=== PATIENT | male | born 2000 | race Caucasian/White ===

== ENCOUNTER 2021-01-19 16:12 | Emergency (ER) | payer OTHER, SELFPAY ==
[2021-01-19 16:25] VITALS: BP 140/75; PULSE 97; RESP 16; TEMP 37.3; O2SAT 99
--- NOTE | 2021-01-19 17:21 | PC.NURSE ---
DOG BITE FORM COMPLETED AND FAXED TO [facility]. PHONE NUMBER CALLED AND MESSAGE LEFT DUE TO SEVERITY OF INJURY.
--- NOTE | 2021-01-19 18:44 | PC.NURSE ---
REPORT PROVIDED TO BENSON BISWAS
[2021-01-19] MEDS: NEOMYCIN/POLYMYXIN/BACITRACIN OINTMENT PACKET 3 PACKET (19:15)
--- NOTE | 2021-01-19 19:17 | ED.ANIMALBIT ---
HPI - Animal Bite General Chief Complaint: Animal Bite Stated Complaint: dog bite under jaw Time Seen by Provider: 01/19/21 16:35 Source: patient and family Mode of arrival: ambulatory Limitations: no limitations History of Present Illness HPI narrative: Patient comes in after being bitten on the neck twice by a dog. He has 6 small laceration on his left lateral chest. complaint: animal bite Onset (ago): minute(s) (30 minute sprior to presentation) Animal: dog Description of animal: household pet Mechanism: bite Location: neck (left lateral neck) Context: playing with animal Associated symptoms: numbness (he has some mild numbness to left lateral neck) Related Data Patient tetanus UTD: Yes Allergies Allergy/AdvReac Type Severity Reaction Status Date / Time lisinopril Allergy Intermediate Verified 04/28/16 09:16 Review of Systems Constitutional: Constitutional: Reports no additional constitutional complaints Eyes: Eyes: Reports no additional eye complaints ENT: Reports system reviewed and no additional complaints, except as documented Cardiovascular: Cardiovascular: Reports no additional cardiovascular complaints Respiratory: Respiratory: Reports no additional respiratory complaints Gastrointestinal: Gastrointestinal: Reports no additional gastrointestinal complaints Genitourinary: Genitourinary: Reports no additional male genitourinary complaints Musculoskeletal: Musculoskeletal: Reports no additional musculoskeletal complaints Integumentary/Breasts: Skin/Breast: Reports system reviewed and no additional complaints, except as docu Neurologic: Reports system reviewed and no additional complaints, except as documented Psychiatric: Psychiatric: Reports no additional psychiatric complaints Endocrine: Endocrine: Reports no additional endocrine complaints Hematologic/Lymphatic: Hematologic/Lymphatic: Reports no additional hematologic/lymphatic complaints Allergic/Immunologic: Allergic/Immunologic: Reports no additional allergic/immunologic complaints [facility] Past Medical History Medical History No significant past medical history Surgical History Surgical History No significant past surgical history Family History Family History Mother No significant family history Social History Social History Smoking status: Never smoker Alcohol intake: never Living arrangements: with family Occupation/Education: occupation Additional occupation/education comments: now working in concrete factory Gender identity (if verbalized by the patient): Male Sexual Orientation (if Verbalized by the Patient): Straight or Heterosexual Spiritual care concerns: No Agree to blood products: No Exam Const: General: no acute distress and alert Nutritional Appearance: thin Orientation/consciousness: patient oriented x3 HENMT: Head: normal to inspection Face and sinus: normal facial exam Other: He has what appears to be 6 lacerations to left lateral neck. Eyes: Conjunctivae: conjunctivae normal Neck: Neck: normal visual inspection Chest: Chest palpation & inspection: normal inspection of the chest Resp: Effort & Inspection: normal respiratory effort Cardio: Rate: regular rate Rhythm: regular rhythm GI: GI Palp: Yes Soft to palpation (nontender) Back/Spine/Pelvis: Back: no CVA tenderness Skin: General skin exam: normal color Neuro: General: patient oriented x3 Extrem: General: normal to inspection Psych: Appearance: grossly normal Mental Status: mental status grossly normal Thought content: Yes Normal thought content present Course Course Emergency Course: He had six wounds to his left lateral neck. Wounds were irrigated with wound wash, and then with normal saline. Wounds edges were t
[2021-01-19] MEDS: PENICILLIN G BENZATHINE 1,200,000 UNITS/2 ML SYRINGE 1200000 UNITS IM (19:26)
[2021-01-19 19:29] VITALS: BP 130/85; PULSE 85; RESP 18; TEMP 36.6; O2SAT 100
== END 2021-01-19 19:43 | disposition home or self-care (01) ==
PROVIDERS: Emergency Provider Emergency Medicine
DX: S11.95XA Open bite of unspecified part of neck, initial encounter (principal); W54.0XXA Bitten by dog, initial encounter
CPT/HCPCS: 12002; 96372; 99283; J0561

== ENCOUNTER 2024-01-16 11:35 | Outpatient (CLI) | payer OTHER, SELFPAY ==
--- NOTE | ~2024-01-16 | XR_ITS ---
Left Hand Technique: PA, oblique, and lateral views were obtained. Clinical History: Pain Findings: No acute fracture or dislocation is seen. Osseous alignment is anatomic. Joint spaces are p reserved. Soft tissues are unremarkable. Impression: Unremarkable left hand. Reviewed, dictated and finalized at location M. Impression: Unremarkable left hand.
--- NOTE | ~2024-01-16 | XR_ITS ---
Left Shoulder Technique: AP and scapular Y views were obtained. Clinical History: Pain Findings: No fracture or dislocation is seen. Osseous alignment is anatomic. The glenohumeral and acr omioclavicular joint spaces are preserved. Soft tissues are unremarkable. Impression: Unremarkable left shoulder radiographs. Reviewed, dictated and finalized at [facility]. Impression: Unremarkable left shoulder radiographs.
--- NOTE | ~2024-01-16 | XR_ITS ---
Right Hand Technique: PA, oblique, and lateral views were obtained. Clinical History: Pain Findings: No acute fracture or dislocation is seen. Osseous alignment is anatomic. Joint spaces are p reserved. Soft tissues are unremarkable. Impression: Unremarkable right hand. Reviewed, dictated and finalized at location M. Impression: Unremarkable right hand.
--- NOTE | ~2024-01-16 | XR_ITS ---
Left Knee Technique: AP, lateral, and sunrise views were obtained. Clinical History: Joint pain Findings: No fracture or dislocation is seen. Osseous alignment is anatomic. Joint spaces are preserv ed without degenerative or erosive change. Soft tissues are unremarkable. No joint effusion is seen. Impression: Unremarkable left knee radiographs. Reviewed, dictated and finalized at location . Impression: Unremarkable left knee radiographs.
--- NOTE | ~2024-01-16 | XR_ITS ---
Right Shoulder Technique: AP and scapular Y views were obtained. Clinical History: Pain Findings: No fracture or dislocation is seen. Osseous alignment is anatomic. The glenohumeral and acr omioclavicular joint spaces are preserved. Soft tissues are unremarkable. Impression: Unremarkable right shoulder radiographs. Reviewed, dictated and finalized at [facility]. Impression: Unremarkable right shoulder radiographs.
== END 2024-01-16 11:36 | disposition home or self-care (01) ==
LOC: CHSIMG 11:37
PROVIDERS: PCP Family Medicine; Visit Provider Physician Assistant
DX: M79.642 Pain in left hand (principal); M79.641 Pain in right hand; M25.562 Pain in left knee; M25.561 Pain in right knee; M25.512 Pain in left shoulder
CPT/HCPCS: 73030; 73130; 73564

== ENCOUNTER 2025-02-27 16:40 | Emergency (ER) | payer BC, SELFPAY ==
[2025-02-27] VITALS (14 sets, daily range): BP systolic 115–162; BP diastolic 63–91; PULSE 49–72; RESP 15–22; TEMP 36.6–36.9; O2SAT 98–100
--- NOTE | ~2025-02-27 | XR_ITS ---
XR chest 2V Ordering provider: Rafa Bower MD History: 24 years Male with . cp . Comparison: None. FINDINGS: MEDIASTINUM: The cardiac silhouette is not enlarged. LUNGS: No infiltrates, effusions or pneumothorax. OTHER: No free air under the diaphragm. IMPRESSION: No acute cardiopulmonary pathology. Reviewed, dictated and finalized at location A.
--- NOTE | 2025-02-27 16:41 | ECG_ITS ---
Test Date: 2025-02-27 16:48:24 Measurements Intervals [place] Rate: 79 P: 35 SC: 124 QRS: 20 QRSD: 102 T: 8 QT: 336 QTc: 385 Interpretive Statements SINUS RHYTHM WITH SINUS ARRHYTHMIA VOLTAGE CRITERIA FOR LVH MINIMAL Q WAVES- HIGH LATERAL LEADS NONSPECIFIC T-WAVE ABNORMALITY= INFERIOR LEADS BASELINE ARTIFACT- I, II, III, AVR, AVL, AVF, V4-V5 BORDERLINE ECG No previous ECG available for comparison Electronically Signed On 02-27-2025 19:00:00 CDT by Flako To D.O.
--- OUTSIDE RECORDS SUMMARY | 2025-02-27 16:42 | XMS_ITS | Continuity of Care Document ---
Author Name [facility] Organization [facility] Care Team Providers Care Director School Of Nursing Name Role Phone [facility] Unavailable Unavailable Problems Combined list of problems from Department of Defense and Veterans Affairs facilities. It does not include entries that were removed or entered in error. Problem Status Onset Date Problem Type Date of Resolution Comments Source Other visual disturbances Inactive 06/24/2020 Condition DoD Disturbances of salivary secretion Inactive 02/09/2020 Condition DoD Medications Combined list of outpatient medications from Department of Defense and Veterans Affairs facilities.Medications provided include 1) outpatient medications from the last 15 months, and 2) patient-reported medications. Medication Details Route Status Patient Instructions Prescription Expires Prescription Number Last Dispense Date Ordering Provider Order Date Order Qty Source doxycycline hyclate 100 mg oral tablet 0 total refill(s ) Ordered 2019 No Facilit y Access Allergies, Adverse Reactions, Alerts Combined list of allergies from Department of Defense and Veterans Affairs facilities. It does not include entries that were removed or entered in error. Substance Category Reaction Severity Reaction type Status Date Reported Comments Source No Known Allergies Drug allergy (disorder) active 09/03/2018 Yuliet Curtis [place] Immunizations Combined list of available immunizations from the Department of Defense and Veterans Affairs facilities. Immunization Series Date Given Administered By Site Reaction Lot Number CVX Code Drug Bryologist Status Comments Source anthrax vaccine 2019 [id number] Emergent Biosolutions complet ed anthrax vaccine 11/28/19 Given Ambulat ory Pharmac y typhoid Vi capsular polysaccharid e vac 2019 [id number] sanofi pasteur complet ed typhoid Vi capsular polysacch aride vac 11/28/19 Given Ambulat ory Pharmac y poliovirus vaccine, inactivated 2019 [id number] 10 sanofi pasteur complet ed polioviru s vaccine, inactivat ed 11/28/19 Given Ambulat ory Pharmac y poliovirus vaccine, inactivated 2019 zzLef t Arm [id number] 10 sanofi pasteur complet ed polioviru s vaccine, inactivat ed 11/28/19 Given Ambulat ory Pharmac y anthrax vaccine 2019 zzLef t Arm [id number] 24 Emergent [employer] complet ed anthrax vaccine 11/28/19 Given Ambulat ory Pharmac y typhoid Vi capsular polysaccharid e vac 2019 zzLef t Arm [id number] 101 sanofi pasteur complet ed typhoid Vi capsular polysacch aride vac 11/28/19 Given Ambulat ory Pharmac y poliovirus vaccine, inactivated 2 2019 AUGUSTUS NARANJO [id number] 10 Sanofi Pasteur (PMC) complet ed polioviru s vaccine, inactivat ed DoD anthrax vaccine 1 2019 AUGUSTUS NARANJO [id number] 24 Emergent [employer] [place] ([facility]) complet ed anthrax vaccine DoD typhoid Vi capsular polysaccharid e vaccine 1 2019 AUGUSTUS NARANJO [id number] 101 Sanofi Pasteur (PMC) complet ed typhoid Vi capsular polysacch aride vaccine DoD hepatitis A adult vaccine 2018 [id number] 52 GlaxoSmithKli ne complet ed hepatitis A adult vaccine 08/28/19 Given Ambulat ory Pharmac y influenza, injectable, quadrivalent- pf 2018 [id number] 150 Seqirus complet ed influenza , injectabl e, quadrival ent-pf 08/28/19 Given Ambulat ory Pharmac y influenza, injectable, quadrivalent- pf 2018 [id number] 150 Seqirus complet ed influenza , injectabl e, quadrival ent-pf 08/28/19 Given Ambulat ory Pharmac y hepatitis A adult vaccine 2018 [id number] 52 GlaxoSmithKli ne complet ed hepatitis A adult vaccine 08/28/19 Given Ambulat ory Pharmac y hepatitis A vaccine, adult dosage 3 2018 [id number] 52 SmithKline (SKB) complet ed hepatitis A vaccine, adult dosage DoD Influenza, injectable, quadrivalent, preservative free 1 2018 [id number] 150 Seqirus (SEQ) complet ed Influenza , injectabl e, quadrival ent, preservat lucia free DoD [place] Encephalitis IM 2018 [id number] 4E 134 Unknown complet ed [place] Encephali tis IM 07/01/19 Given Ambulat ory Pharmac y [place] Encephalitis IM 2018 [id number] 4E 134 Unknown complet ed [place] Encephali tis IM 07/01/19 Given Ambulat ory Pharmac y [place] Encephalitis vaccine for intramuscular administratio n 2 2018 [id number] 4E 134 Unknown (UNK) complet ed [place] Encephali tis vaccine for intramusc ular administr ation DoD [place] Encephalitis IM 2018 [id number] 4E 134 Unknown complet ed [place] Encephali tis IM 05/25/19 Given Ambulat ory Pharmac y [place] Encephalitis IM 2018 [id number] 4E 134 Unknown complet ed [place] Encephali tis IM 05/25/19 Given Ambulat ory Pharmac y [place] Encephalitis vaccine for intramuscular administratio n 1 2018 [id number] 4E 134 Unknown (UNK) complet ed [place] Encephali tis vaccine for intramusc ular administr ation DoD hepatitis A adult vaccine 2017 UNK 52 Unknown complet ed hepatitis A adult vaccine 10/19/18 Given Ambulat ory Pharmac y hepatitis A adult vaccine 2017 UNK 52 Unknown complet ed hepatitis A adult vaccine 10/19/18 Given Ambulat ory Pharmac y hepatitis A vaccine, adult dosage 2 2017 UNK 52 Unknown (UNK) comple t ed hepatitis A vaccine, adult dosage DoD influenza, injectable, quadrivalent- pf 2017 [id number] 150 GlaxoSmithKli ne complet ed influenza , injectabl e, quadrival ent-pf 10/01/18 Given Ambulat ory Pharmac y influenza, injectable, quadrivalent- pf 2017 [id number] 150 GlaxoSmithKli ne complet ed influenza , injectabl e, quadrival ent-pf 10/01/18 Given Ambulat ory Pharmac y Influenza, injectable, quadrivalent, preservative free 1 2017 [id number] 150 M-DAQine (SKB) complet ed Influenza , injectabl e, quadrival ent, preservat lucia free DoD measles, mumps and rubella virus vaccine 1 2017 UNK 03 Unknown (UNK) Not Given measles, mumps and rubella virus vaccine DoD varicella virus vaccine 1 2017 UNK 21 Unknown (UNK) Not Given varicella virus vaccine DoD hepatitis B vaccine, adult dosage 1 2017 UNK 43 Unknown (UNK) Not Given hepatitis B vaccine, adult dosage DoD adenovirus vaccine, live 08/17/ 2018 [id number] 143 Teva Pharmaceutica ls complet ed adenoviru s vaccine, live 06/21/18 Given Ambulat ory Pharmac y Hep A, ped/adol, 2 dose 2017 [id number] 83 GlaxoSmithKli ne complet ed Hep A, ped/adol, 2 dose 06/21/18 Given Ambulat ory Pharmac y Hep A, ped/adol, 2 dose 2017 [id number] 83 GlaxoSmithKli ne complet ed Hep A, ped/adol, 2 dose 06/21/18 Given Ambulat ory Pharmac y adenovirus vaccine, live 2017 [id number] 5 143 Teva Pharmaceutica ls complet ed adenoviru s vaccine, live 06/21/18 Given Ambulat ory Pharmac y hepatitis A vaccine, pediatric/ado lescent dosage, 2 dose schedule 1 2017 [id number] 83 [employer] [facility] (SKB[facility] complet ed hepatitis A vaccine, pediatric /adolesce nt dosage, 2 dose schedule DoD Adenovirus, type 4 and type 7, live, oral [id number] [facility] (R) complet ed Adenoviru s, type 4 and type 7, live, oral DoD tetanus, diphtheria, acellular pertu is 2017 [id number] 115 sanofi pasteur complet ed tetanus, diphtheri a, acellular pertussis 06/19/18 Given Ambulat ory Pharmac y meningococcal A,C,Y,W-135 (MCV4P) 2017 UNK 114 Merck & Company Inc complet ed meningoco ccal A,C,Y,W-1 35 (MCV4P) 06/19/18 Given Ambulat ory Pharmac y poliovirus vaccine, inactivated 2017 [id number] 10 sanofi pasteur complet ed polioviru s vaccine, inactivat ed 06/19/18 Given Ambulat ory Pharmac y poliovirus vaccine, inactivated 2017 [id number] 10 sanofi pasteur complet ed polioviru s vaccine, inactivat ed 06/19/18 Given Ambulat ory Pharmac y tetanus, diphtheria, acellular pertu is 2017 [id number] 115 sanofi pasteur complet ed tetanus, diphtheri a, acellular pertussis 06/19/18 Given Ambulat ory Pharmac y meningococcal A,C,Y,W-135 (MCV4P) 2017 UNK 114 Merck & Company Inc complet ed meningoco ccal A,C,Y,W-1 35 (MCV4P) 06/19/18 Given Ambulat ory Pharmac y poliovirus vaccine, inactivated 1 2017 [id number] 10 Sanofi Pasteur (PMC) complet ed polioviru s vaccine, inactivat ed DoD meningococcal polysaccharid e (groups A, C, Y and W-135) diphtheria toxoid conjugate vaccine (MCV4P) 1 2017 UNK 114 Merck (MSD) complet ed meningoco ccal polysacch aride (groups A, C, Y and W-135) diphtheri a toxoid conjugate vaccine (MCV4P) DoD tetanus toxoid, reduced diphtheria toxoid, and acellular pertu is vaccine, adsorbed 1 2017 [id number] 115 Sanofi Pasteur (PMC) complet ed tetanus toxoid, reduced diphtheri a toxoid, and acellular pertussis vaccine, adsorbed DoD Encounters Combined list of: 1) Encounters from Department of Veterans Affairs facilities going backup to the last 18 months, not all VA inpatient encounters are included; 2) Encounters from the Department of Defense facilities going backup to 280 months. Location Location Details Encounter Type Encounter Number Reason For Visit Attending Provider ADM Date DC Date Status Disposition Source [place]iet [place]([facility]) OUTPATIENT [id number] Notes Entered by: HEIDI DIAZ 20 Jun 2018 1046 ------- ------- ------- ------- -- hearing test HEIDI ALVARADO 06/20 Released w/o Limitations [place] ) [place] [place] OUTPATIENT [id number] ANA KO 06/24 Released w/o Limitations [place] [place] [facility] OUTPAT[place] [id number] Notes Entered by: JENNIFER OLVERA 18 Jul 2018 0735 ------- ------- ------- ------- -- IMM TASHA GONSALEZ Shayla 07/18 Released w/o Limitations [place] ) [place] [facility]) OUTPATIENT [id number] NEURO headach DUKE Reza 09/03 Sick at Home/Quarter s [place] [facility]) OUTPATIENT [id number] Notes Entered by: MANISHA ARGUELLO 01 Oct 2018 0956 ------- ------- ------- ------- -- IMM-FLU THEO CORTES 10/01 Released w/o Limitations [place] [facility]) [facility]) OUTPATIENT [id number] Notes Entered by: ANTHONY CUEVAS 28 Nov 2019 1028 ------- ------- ------- ------- -- STEPHANIE WOLFF 11/28 Released w/o Limitations [facility] OUTPATIENT [id number] Theater Provider 02/08 Released w/o Limitations Theater Facilit y Theater Facility OUTPATIENT [id number] Theater Provider 06/24 Released w/o Limitations Theater Facilit y [facility]) OUTPATIENT [id number] Notes Entered by: YOUNG ADORNO 04 Oct 2020 0843 ------- ------- ------- ------- -- JOSIAH GASTELUM 10/04 Released w/o Limitations [facility]) [facility]) OUTPATIENT [id number] Notes Entered by: RENNY GARCIA 04 Oct 2020 0849 ------- ------- ------- ------- -- BRIANDA ESTEVEZ 10/04 Released w/o Limitations [facility] [place] ) Procedures Combined list of: 1) Procedures from Department of Veterans Affairs facilities going back up to thelast 18 months, not all VA non-surgical procedures are included; 2) All procedures from the Department of Defense facilities. Procedure Procedure Type Code Date Perfomer Comments Sourc e No data available for this section Ambulato ry Pharmacy Immunization Administration One Vaccine Immunization Administration One Vaccine 06585 018 THEO KEE DoD Vaccines Adenovirus Type 7 Live, For Oral Use Vaccines Adenovirus Type 7 Live, For Oral Use 69081 018 TASHA GONSALEZ A single vaccine dose administered orally DoD Immunization Administration Each Additional Vaccine Immunization Administration Each Additional Vaccine 61477 TASHA GONSALEZ DoD Immunization Administration One Vaccine Immunization Administration One Vaccine 80348 018 TASHA GONSALEZ DoD Tdap Vaccine Tdap Vaccine 47629 TASHA GONSALEZ Visit for an IM injection of 0.5mL of Boostrix (Tetanus and Diphtheria Toxoids and Acellular Pertussis). Was given in the Right Deltoid. Patient was observed for 15 min with no adverse reactions. DoD Vaccines Viral Polio, Inactivated (Salk) Vaccines Viral Polio, Inactivated (Salk) 22677 018 TASHA GONSALEZ Visit for an IM injection of 0.5mL of IPOL (Poliovirus Vaccine Inactivated). Was given in the Right Deltoid. Patient was observed for 15 min with no adverse reactions. DoD Hep A Vac Ped/Adol Dosage (Intramusc Use) 2 Dose Schedule Hep A Vac Ped/Adol Dosage (Intramusc Use) 2 Dose Schedule 86902 018 TASHA GONSALEZ Visit for an IM injection of 0.5mL of Hepatitis A (Havrix) pediatric dose. Was given in the Right Deltoid. Patient was observed for 15 min with no adverse reactions. DoD Immunization Admin Intranasal / Oral Each Additional Vaccine Immunization Admin Intranasal / Oral Each Additional Vaccine [address] [facility] Vaccines Adenovirus Type 4 Live, For Oral Use Vaccines Adenovirus Type 4 Live, For Oral Use 49778 018 TASHA GONSALEZ A single vaccine dose administered orally [facility] Screening Test Of Visual Acuity, Quantitative, Bilateral Screening Test Of Visual Acuity, Quantitative, Bilateral [address] [facility] Threshold Audiogram (Pure Tone) Automated Threshold Audiogram (Pure Tone) Automated [id number] [address] [facility] Vaccines Viral Polio, Inactivated (Salk) Vaccines Viral Polio, Inactivated (Salk) 50181 STEPHANIE AUGUSTE IPV; Series #: 2; 0.5 mL; IM; Left Arm; Mfg: Sanofi Pasteur; Lot: [id number]; VIS given (Avel: 05/24/16; 09/09/15 - Multiple). [facility] Typhoid Vaccine Vi Capsular Polysaccharide, For Intramus Use Typhoid Vaccine Vi Capsular Polysaccharide, For Intramus Use 07702 STEPHANIE AUGUSTE Typhoid, ViCPs; Series #: 1; 0.5 mL; IM; Left Arm; Mfg: Sanofi Pasteur; Lot: [id number]; VIS given (Avel: 04/02/12). [facility] Immunization Administration One Vaccine Immunization Administration One Vaccine [address] [facility] Immunization Administration Each Additional Vaccine Immunization Administration Each Additional Vaccine [address] [facility] Threshold Audiogram (Pure Tone) Automated Threshold Audiogram (Pure Tone) Automated 0208T BRIANDA CASILLAS [facility] Social History Combined list of available smoking, tobacco, and other social history from Department of Defense and Veterans Affairs facilities. Social History Type Response Date Comment Formerly [facility] e Sex Representation Male (finding) 08/04/2020 Un known Organization Sexual Orientation Ambula tory Pharmacy Gender identity Ambulator y Pharmacy This section is an empty social history section. DoD Assessment and Plan Combined list of future care activities from Department of Defense and Veterans Affairs facilities (e.g., assessment and plan notes, appointments, orders, and referrals). Additional future care activities may be listed in the Plan of Care section. Result Assessment and Plan Date Source Assessment and Plan No data available for this section 02/27/2025 Ambulatory Pharmacy Functional Status Combined list of recent functional and cognitive assessments recorded at Department of Defense and Veterans Affairs (VA).VA Functional [place] Measurement (FIM) Scale: 1 = Total Assistance (Subject = 0% +), 2 = Maximal Assistance (Subject = 25% +), 3 = Moderate Assistance (Subject = 50% +), 4 = Minimal Assistance (Subject = 75% +), 5 = Supervision, 6 = Modified [place] (Device), 7 = Complete [place] (Timely, Safely). Assessment Date/Time Source Assessment Type Assessment Skill Assessment Score Assessment Details No data available for this section
--- NOTE | 2025-02-27 16:50 | ED.CHESTPAIN ---
HPI - Chest Pain General Chief Complaint: Chest Pain <Nichelle Tapia APRN - Last Filed: 02/27/25 17:05> Stated Complaint: CP <Nichelle Braulio Tapia APRN - Last Filed: 02/27/25 17:05> Time Seen by Provider: 02/27/25 16:50 <Nichelle Tapia APRN - Last Filed: 02/27/25 17:05> Focused HPI: Patient is a 24-year-old male who presents to the ER with complaints of chest pain. He reports his chest pain started at approximately 12:00 p.m. and has been intermittent. Patient reports his chest pain radiates to his left shoulder and down his arm. He denies any recent fevers, abdominal pain, back pain, other signs/symptoms of illness. Patient reports he has a history of high blood pressure but does not take medication to treat it. He denies any other medical history. GENERAL: Well-appearing, well-nourished, and in no acute distress. HEAD: Normocephalic, atraumatic. CHEST: Clear to auscultation. ?No respiratory distress. HEART: Regular rate and rhythm.? NEURO: ?Alert and oriented x3. Patient screened in triage and initial orders placed.? ?Additional care and disposition to be based upon?diagnostic testing and treatment. <Nichelle Tapia APRN - Last Filed: 02/27/25 17:05> Source: patient <Tello Cosme PA-C - Last Filed: 02/27/25 20:31> Mode of arrival: ambulatory <ELIAS Davis Last Filed: 02/27/25 20:31> Limitations: no limitations <Tello Cosme PA-C - Last Filed: 02/27/25 20:31> History of Present Illness HPI narrative: Agree with HPI above. Additionally does not reported any associated nausea, vomiting, numbness, weakness, lightheadedness, dizziness, palpitations or shortness of breath. States the pain lasts for few minutes and will usually go away on its own. States that he has a very stressful job and has been stressed every day with work, working long hours. He does report that he has had diagnosis of high blood pressure but does not take any medications. Denies recent illness, cough, leg swelling, recent immobilization, hospitalization. Denies history of VTE <Tello Cosme PA-C - Last Filed: 02/27/25 20:31> Related Data Allergies/Adverse Reactions: Allergies Allergy/AdvReac Type Severity Reaction Status Date / Time No Known Allergies Allergy Verified 02/27/25 16:40 <Nichelle Tapia APRN - Last Filed: 02/27/25 17:05> Review of Systems Review of Systems: All systems as dictated in HPI <Tello Cosme PA-C - Last Filed: 02/27/25 20:31> PMFSH Past Medical History Medical History: Medical History HTN (hypertension) No significant past medical history <Nichelle Tapia APRN - Last Filed: 02/27/25 17:05> Surgical History Surgical History: Surgical History History of wisdom tooth extraction <Nichelle Tapia APRN - Last Filed: 02/27/25 17:05> Family History Family History: Family History Mother Hypertension Father Hypertension <Nichelle Tapia APRN - Last Filed: 02/27/25 17:05> Social History Social History: Social History Smoking packs per day: 1 Smoking cigarettes per day: 20.0 Smoking status: Never smoker Tobacco type: cigarettes Alcohol intake: current Drinks per week: 3 Alcohol use details: BEER Living arrangements: with family Occupation/Education: occupation Additional occupation/education comments: now working in concrete factory Gender identity (if verbalized by the patient): Male Sexual Orientation (if Verbalized by the Patient): Straight or Heterosexual Spiritual care concerns: No Agree to blood products: No <Nichelle Tapia APRN - Last Filed: 02/27/25 17:05> Exam Narrative: GENERAL: Well-appearing, well-nourished, and in no acute distress. HEAD: Normocephalic, atraumatic. EYES: PERRLA and EOMI. ENT: Nares clear, no rhinorrhea or epistaxis. Mucous membranes moist. Oropharynx without tonsillar hypertrophy exudate or other lesions. NECK: Supple. No adenopathy or masses. CHEST: No respiratory distress. Clear to auscultation. No wheezes rales or rhonchi HEART: Regular rate and rhythm. No murmur heard. Normal peripheral pulses. ABDOMEN: Soft, nontender, nondistended, normal active bowel sounds. MSK: Normal range of motion. No edema. SKIN: Warm, dry, no rash. NEURO: Alert and oriented x4. No focal deficits. PSYCH: Normal mood and affect. <Tello Cosme PA-C - Last Filed: 02/27/25 20:31> Course Vital Signs Vital signs: Vital Signs Temperature 97.8 F 02/27/25 16:42 Pulse Rate 72 02/27/25 16:42 Respiratory Rate 16 02/27/25 16:42 Blood Pressure 162/91 H 02/27/25 16:42 Pulse Oximetry 98 02/27/25 16:42 Oxygen Delivery Room Air 02/27/25 16:42 Temperature 98.5 F 02/27/25 19:17 Pulse Rate 58 L 02/27/25 19:17 Respiratory Rate 20 02/27/25 19:17 Blood Pressure 145/83 H 02/27/25 19:17 Pulse Oximetry 98 02/27/25 19:17 Oxygen Delivery Room Air 02/27/25 17:21 <Nichelle Tapia APRN - Last Filed: 02/27/25 17:05> Vital Signs Temperature 97.8 F 02/27/25 16:42 Pulse Rate 72 02/27/25 16:42 Respiratory Rate 16 02/27/25 16:42 Blood Pressure 162/91 H 02/27/25 16:42 Pulse Oximetry 98 02/27/25 16:42 Oxygen Delivery Room Air 02/27/25 16:42 Temperature 98.5 F 02/27/25 19:17 Pulse Rate 58 L 02/27/25 19:17 Respiratory Rate 20 02/27/25 19:17 Blood Pressure 145/83 H 02/27/25 19:17 Pulse Oximetry 98 02/27/25 19:17 Oxygen Delivery Room Air 02/27/25 17:21 <Tello Cosme PA-C - Last Filed: 02/27/25 20:31> MDM - Chest Pain MDM Narrative Medical decision making narrative: This is a 24-year-old male who presents to the ED for chief complaint intermittent chest pain beginning today. Patient states the pain lasts for few minutes and goes away on its own. Vitals are normal. Lab work is grossly unremarkable including-0 and 3 hour troponins. Heart score 1. He has ruled out for PE with PERC rule out criteria. Chest x-ray is negative. Low concern for aortic pathology. Patient had 1 episode of pain in the ED that last for a few seconds. Repeat ECG is do not show any evidence of acute ischemia. Presentation consistent with atypical chest pain versus anxiety. Patient will be discharged in stable condition. Supportive measures discussed and return precautions given. Patient is understanding and agreeable with plan for discharge with PCP follow-up. PERC Rule for Pulmonary Embolism from [email or web address] on 02/27/2025 All calculations should be rechecked by clinician prior to use RESULT SUMMARY: 0 criteria No need for further workup, as <2% chance of PE. If no criteria are positive and clinician?s pre-test probability is <15%, PERC Rule criteria are satisfied. INPUTS: Age >=0 ?> 0 = No HR >=00 ?> 0 = No O? sat on room air <95% ?> 0 = No Unilateral leg swelling ?> 0 = No Hemoptysis ?> 0 = No Recent surgery or trauma ?> 0 = No Prior PE or DVT ?> 0 = No Hormone use ?> 0 = No <Tello Cosme PA-C - Last Filed: 02/27/25 20:31> Lab Data Result diagrams: 02/27/25 16:56 02/27/25 16:56 <Nichelle Tapia APRN - Last Filed: 02/27/25 17:05> Labs: Lab Results 02/27/25 02/27/25 Range/Units 16:56 20:04 WBC 8.5 (4.5-10.0) K/mm3 RBC 5.35 (4.6-6.20) M/mm3 Hgb 16.0 (14.0-18.0) g/dL Hct 47.0 (42.0-52.0) % MCV 87.9 (80-100) fl MCH 29.9 (26-34) pg MCHC 34.0 (32-36) g/dl RDW 12.0 (11.5-14.5) % Plt Count 135 L (150-375) k/mm3 MPV 12.1 H (7.4-10.4) fl Immature Gran % (Auto) 0.6 H (0-0.5) % Neut % (Auto) 60.7 (45.5-73.1) % Lymph % (Auto) 30.5 (18.3-44.2) % Williams % (Auto) 7.0 (2.6-8.5) % Eos % (Auto) 0.8 (0-4.4) % Baso % (Auto) 0.4 (0.2-1.2) % Lymph # (Auto) 2.58 (0.9-3.2) K/mm3 Williams # (Auto) 0.6 (0.1-0.6) K/mm3 Eos # (Auto) 0.1 (0-0.3) K/mm3 Baso # (Auto) 0.0 (0.0-0.1) K/mm3 Abs Immat Gran (auto) 0.05 H (0.00-0.031) K/mm3 Absolute Neuts (auto) 5.2 (1.3-6.7) K/mm3 Absolute Nucleated RBC 0.000 (0.0-0.012) K/mm3 Nucleated RBC % 0.0 (0.0-0.2) % PT 13.4 (11.1-14.7) Seconds INR 1.0 APTT 27.3 (22.3-36.8) Seconds Sodium 139 (137-145) mmol/L Potassium 3.9 (3.4-5.0) mmol/L Chloride 103 (98-107) mmol/L Carbon Dioxide 27 (22-30) mmol/L Anion Gap 9 (4-12) mmol/L BUN 15 (9-20) mg/dL Creatinine 0.85 (0.7-1.3) mg/dL Estim Creat Clear Calc 133 ml/min Estimated GFR > 60 (59 - ) Glucose 95 (65-110) mg/dL Calcium 9.2 (8.4-10.2) mg/dL Total Bilirubin 0.7 (0.2-1.3) mg/dL AST 30 (17-59) U/L ALT 39 (6-50) U/L Alkaline Phosphatase 72 (38-126) U/L Troponin I < 0.012 < 0.012 (0.000-0.034) ng/mL Total Protein 8.0 (6.3-8.2) g/dL Albumin 4.9 (3.5-5.1) g/dL Lipase 52 (23-300) U/L <Nichelle Tapia, PRODUCT SAFETY ADMINISTRATOR - Last Filed: 02/27/25 17:05> Lab Results 02/27/25 02/27/25 Range/Units 16:56 20:04 WBC 8.5 (4.5-10.0) K/mm3 RBC 5.35 (4.6-6.20) M/mm3 Hgb 16.0 (14.0-18.0) g/dL Hct 47.0 (42.0-52.0) % MCV 87.9 (80-100) fl MCH 29.9 (26-34) pg MCHC 34.0 (32-36) g/dl RDW 12.0 (11.5-14.5) % Plt Count 135 L (150-375) k/mm3 MPV 12.1 H (7.4-10.4) fl Immature Gran % (Auto) 0.6 H (0-0.5) % Neut % (Auto) 60.7 (45.5-73.1) % Lymph % (Auto) 30.5 (18.3-44.2) % Williams % (Auto) 7.0 (2.6-8.5) % Eos % (Auto) 0.8 (0-4.4) % Baso % (Auto) 0.4 (0.2-1.2) % Lymph # (Auto) 2.58 (0.9-3.2) K/mm3 Williams # (Auto) 0.6 (0.1-0.6) K/mm3 Eos # (Auto) 0.1 (0-0.3) K/mm3 Baso # (Auto) 0.0 (0.0-0.1) K/mm3 Abs Immat Gran (auto) 0.05 H (0.00-0.031) K/mm3 Absolute Neuts (auto) 5.2 (1.3-6.7) K/mm3 Absolute Nucleated RBC 0.000 (0.0-0.012) K/mm3 Nucleated RBC % 0.0 (0.0-0.2) % PT 13.4 (11.1-14.7) Seconds INR 1.0 APTT 27.3 (22.3-36.8) Seconds Sodium 139 (137-145) mmol/L Potassium 3.9 (3.4-5.0) mmol/L Chloride 103 (98-107) mmol/L Carbon Dioxide 27 (22-30) mmol/L Anion Gap 9 (4-12) mmol/L BUN 15 (9-20) mg/dL Creatinine 0.85 (0.7-1.3) mg/dL Estim Creat Clear Calc 133 ml/min Estimated GFR > 60 (59 - ) Glucose 95 (65-110) mg/dL Calcium 9.2 (8.4-10.2) mg/dL Total Bilirubin 0.7 (0.2-1.3) mg/dL AST 30 (17-59) U/L ALT 39 (6-50) U/L Alkaline Phosphatase 72 (38-126) U/L Troponin I < 0.012 < 0.012 (0.000-0.034) ng/mL Total Protein 8.0 (6.3-8.2) g/dL Albumin 4.9 (3.5-5.1) g/dL Lipase 52 (23-300) U/L <Tello Cosme PA-C - Last Filed: 02/27/25 20:31> ECG Data EKG #1: ECG completion date: 02/27/25 <ELIAS Davis Last Filed: 02/27/25 20:31> ECG completion time: 16:48 <ELIAS Davis Last Filed: 02/27/25 20:31> Prior ECG tracings: available for review <Tello Cosme PA-C - Last Filed: 02/27/25 20:31> Interpretation: Sinus rhythm with sinus arrhythmia Rate 79 Normal QRS No acute ischemic findings <Tello Cosme PA-C - Last Filed: 02/27/25 20:31> Discharge Plan Discharge Clinical Impression: Atypical chest pain <Nichelle Tapia APRN - Last Filed: 02/27/25 17:05> Patient Disposition: Home <Nichelle Tapia APRN - Last Filed: 02/27/25 17:05> Condition: Stable <Nichelle Tapia APRN - Last Filed: 02/27/25 17:05> Instructions: Antibiotic Form <Nichelle Tapia APRN - Last Filed: 02/27/25 17:05> Additional Instructions: Exam and imaging today are reassuring overall. Blood pressure was elevated but this should be followed up closely with PCP. For any further pain, take 600 mg of ibuprofen every 6 hours as needed. If you have any new or worsening symptoms please return to the ER for further evaluation. <Nichelle Tapia APRN - Last Filed: 02/27/25 17:05> Patient Language: Setswana <Nichelle Tapia APRN - Last Filed: 02/27/25 17:05> Prescriptions: No Action lisinopril 10 mg tablet 10 mg PO DAILY Qty: 90 1RF <Nichelle Tapia APRN - Last Filed: 02/27/25 17:05> Follow-up/Referrals: Ceasar Gaston MD [Primary Care Provider] - <Nichelle Tapia APRN - Last Filed: 02/27/25 17:05> Time of Disposition: 20:27 <Nichelle Tapia APRN - Last Filed: 02/27/25 17:05> 20:27 <Tello Cosme PA-C - Last Filed: 02/27/25 20:31> Quality HEART score for chest pain patients History: slightly suspicious <Tello Cosme PA-C - Last Filed: 02/27/25 20:31> ECG: normal <Tello Cosme PA-C - Last Filed: 02/27/25 20:31> Age: < or = to 45 years <Tello Cosme PA-C - Last Filed: 02/27/25 20:31> Risk factors: 1 or 2 risk factors <Tello Cosme PA-C - Last Filed: 02/27/25 20:31> Troponin: < or = to 1x normal limit <Tello Cosme PA-C - Last Filed: 02/27/25 20:31> Heart score: 1 <Tello Cosme PA-C - Last Filed: 02/27/25 20:31>
[2025-02-27 17:01] LABS: Basophils Percent Auto 0.4 % (0.2-1.2); Eosinophils Absolute Auto 0.1 K/mm3 (0-0.3); Eosinophils Percent Auto 0.8 % (0-4.4); Immature Granulocyte Absolute 0.05 K/mm3 (0.00-0.031); Immature Granulocyte Percent A 0.6 % (0-0.5); Lymphocytes Absolute Auto 2.58 K/mm3 (0.9-3.2); Lymphocytes Percent Auto 30.5 % (18.3-44.2); Mean Corpuscular Hemoglobin 29.9 pg (26-34); Mean Corpuscular Volume 87.9 fl (80-100); Mean Platelet Volume 12.1 fl (7.4-10.4); Monocytes Absolute Auto 0.6 K/mm3 (0.1-0.6); Neutrophils Absolute Auto 5.2 K/mm3 (1.3-6.7); Neutrophils Percent Auto 60.7 % (45.5-73.1); Platelet Count Result 135 k/mm3 (150-375); Red Blood Count 5.35 M/mm3 (4.6-6.20); White Blood Count 8.5 K/mm3 (4.5-10.0)
[2025-02-27 17:12] LABS: Alanine Aminotransferase 39 U/L (6-50); Albumin Level 4.9 g/dL (3.5-5.1); Alkaline Phosphatase 72 U/L (38-126); Anion Gap 9 mmol/L (4-12); Aspartate Amino Transferase 30 U/L (17-59); Bilirubin,Total 0.7 mg/dL (0.2-1.3); Blood Urea Nitrogen 15 mg/dL (9-20); Calcium 9.2 mg/dL (8.4-10.2); Carbon Dioxide 27 mmol/L (22-30); Chloride 103 mmol/L (98-107); Estimated CRCL calculation 133 ml/min; Estimated Glomerular Filt Rate > 60; Glucose 95 mg/dL (65-110); Lipase 52 U/L (23-300); Potassium 3.9 mmol/L (3.4-5.0); Sodium 139 mmol/L (137-145)
[2025-02-27 17:24] LABS: Troponin I < 0.012 ng/mL (0.000-0.034)
[2025-02-27 17:27] LABS: Partial Thromboplastin Time 27.3 Seconds (22.3-36.8); Prothrombin Time 13.4 Seconds (11.1-14.7)
--- NOTE | 2025-02-27 18:25 | ECG_ITS ---
Test Date: 2025-02-27 18:28:06 Measurements Intervals [place] Rate: 62 P: 37 VT: 132 QRS: 21 QRSD: 104 T: 11 QT: 375 QTc: 381 Interpretive Statements SINUS RHYTHM VOLTAGE CRITERIA FOR LVH MINIMAL Q WAVES- HIGH LATERAL LEADS BASELINE ARTIFACT- I, II, III, AVR, AVL ,AVF BORDERLINE ECG Compared to ECG 02/27/2025 16:48:24 NO SIGNIFICANT CHANGE Electronically Signed On 02-27-2025 18:59:11 CDT by Flako To D.O.
--- NOTE | 2025-02-27 19:14 | PC.NURSE ---
Received repot from [facility] for cont. of care. Pt lying on stretcher respirations even and unlabored.Pt AOx4, on cont. equipment monitor phototypesetting and pulse oximeter, denies pain and/or discomfort at this time. VS WNL
--- NOTE | 2025-02-27 19:37 | ECG_ITS ---
Test Date: 2025-02-27 19:41:42 Measurements Intervals [place] Rate: 66 P: 38 MS: 129 QRS: 20 QRSD: 103 T: 15 QT: 402 QTc: 423 Interpretive Statements SINUS RHYTHM WITH SINUS ARRHYTHMIA VOLTAGE CRITERIA FOR LVH MINIMAL Q WAVES- HIGH LATERAL LEADS BASELINE ARTIFACT- I, III, AVR BORDERLINE ECG Compared to ECG 02/27/2025 18:28:06 No significant changes Electronically Signed On 02-28-2025 07:13:47 CDT by Flako To D.O.
[2025-02-27 20:29] LABS: Troponin I < 0.012 ng/mL (0.000-0.034)
== END 2025-02-27 21:07 | disposition home or self-care (01) ==
PROVIDERS: Emergency Medicine; Emergency Provider Physician Assistant; PCP Family Medicine
DX: R07.89 Other chest pain (principal); I10 Essential (primary) hypertension
CPT/HCPCS: 36415; 71046; 80053; 83690; 84484; 85025; 85610; 85730; 93005; 99284

== ENCOUNTER 2025-09-22 08:51 | Outpatient (CLI) | payer BC, SELFPAY ==
[2025-09-22 09:03] LABS: Add Urine Microscopic? NO; Appearance Urine Clear (Clear); Glucose Urine UA Negative (Negative); Leukocyte Esterase Ur Negative LEU/UL (Negative); Nitrate Urine Negative (Negative); Specific Grav Ur 1.025 (1.010-1.020)
[2025-09-22 09:04] LABS: Hematocrit 47.6 % (40.0-54.0); Hemoglobin 16.4 g/dL (14.0-18.0); Immature Granulocyte Percent A 0.8 % (0.0-0.0); Lymphocytes Absolute Auto 1.96 K/mm3 (1.10-4.50); Mean Corpuscular HGB Conc 34.5 g/dL (32-36); Mean Corpuscular Hemoglobin 29.7 pg (27.0-31.0); Mean Corpuscular Volume 86.1 fL (78.0-102.0); Nucleated Red Blood Cells Absolute Auto 0.00 K/mm3 (0.00-0.00); Nucleated Red Blood Cells Perc 0.0 % (0-0.0); Platelet Count Result 172 K/mm3 (150-420); Red Blood Count 5.53 M/mm3 (4.70-6.10); White Blood Count 6.2 K/mm3 (4.8-10.8)
[2025-09-22 09:24] LABS: Alanine Aminotransferase 41 U/L (6-50); Albumin Level 4.9 g/dL (3.5-5.1); Alkaline Phosphatase 66 U/L (38-126); Anion Gap 9 mmol/L (4-12); Aspartate Amino Transferase 34 U/L (17-59); Bilirubin,Total 1.2 mg/dL (0.2-1.3); Blood Urea Nitrogen 15 mg/dL (9-20); Calcium 9.6 mg/dL (8.4-10.2); Carbon Dioxide 30 mmol/L (22-30); Chloride 104 mmol/L (98-107); Cholesterol 203 mg/dL (0-200); Estimated Glomerular Filt Rate > 60; Glucose 101 mg/dL (65-110); HDL Direct 55 mg/dL; Osmolality Calculated 296 mOsm/kg (285-295); Potassium 4.3 mmol/L (3.4-5.0); Sodium 143 mmol/L (137-145); Total Protein 7.5 g/dL (6.3-8.2); Triglycerides 82 mg/dL (<150)
[2025-09-22 09:54] LABS: Thyroid Stimulating Hormone 1.800 uIU/mL (0.465-4.680)
== END 2025-09-22 08:52 | disposition home or self-care (01) ==
PROVIDERS: PCP Nurse Practitioner; Visit Provider Nurse Practitioner
DX: Z00.00 Encounter for general adult medical examination without abnormal findings (principal); I10 Essential (primary) hypertension
CPT/HCPCS: 36415; 80053; 80061; 81003; 84443; 85025